=== PATIENT | male | born 1970 | race Caucasian/White ===

== ENCOUNTER 2017-03-23 09:18 | Emergency (ER) | payer SELFPAY ==
--- NOTE | 2017-03-23 09:49 | EDM.PDOC ---
ED HPI GENERAL MEDICAL PROBLEM - General Chief Complaint: Chest Pain Stated Complaint: CHEST PAIN Time Seen by Provider: 03/23/17 09:24 Source of Information: Reports: Patient History Limitations: Reports: No Limitations - History of Present Illness INITIAL COMMENTS - FREE TEXT/NARRATIVE: The patient is a 46-year-old male with a chief complaint of chest discomfort. He states that he's been getting intermittent chest discomfort for a few months. States that it started when he was going through a very stressful divorce. He states that it is not really a pain but more of a tightness feeling that he gets in his chest sometimes. States that he's been getting it more frequently over the last few days and that its been fairly constant for about 3 days now. Discomfort is located in the center of his chest. No radiation. No exacerbating or relieving factors. No inspiratory pain. Mild SOB. No nausea or vomiting. No cough. No fever or recent illness. No lower extremity pain or swelling. He does currently have the pain at this moment but it is minimal. Treatments RN TRANSITIONAL CARE: Reports: Aspirin Chest Pain Score (Numeric/FACES): 7 - Related Data Allergies Allergy/AdvReac Type Severity Reaction Status Date / Time No Known Allergies Allergy Verified 03/23/17 09:28 Home Meds: Home Meds . [No Known Home Meds] 03/23/17 [History] ED ROS GENERAL - Review of Systems Review Of Systems: See Below Constitutional: Denies: Fever HEENT: Reports: No Symptoms Respiratory: Reports: Shortness of Breath Cardiovascular: Reports: Chest Pain Endocrine: Reports: Fatigue GI/Abdominal: Denies: Abdominal Pain, Vomiting Musculoskeletal: Denies: Arm Pain Skin: Reports: No Symptoms Neurological: Reports: No Symptoms Psychiatric: Reports: No Symptoms Hematologic/Lymphatic: Reports: No Symptoms Immunologic: Reports: No Symptoms ED EXAM, GENERAL - Physical Exam Exam: See Below Exam Limited By: No Limitations General Appearance: Alert, WD/WN, No Apparent Distress Eye Exam: Bilateral Eye: Normal Inspection Ears: Normal External Exam Nose: Normal Inspection Throat/Mouth: Normal Inspection, Normal Voice, No Airway Compromise Head: Atraumatic, Normocephalic Neck: Normal Inspection, Supple Respiratory/Chest: No Respiratory Distress, Lungs Clear, Normal Breath Sounds, Chest Non-Tender Cardiovascular: Normal Peripheral Pulses, Regular Rate, Rhythm, No Edema, No Murmur GI/Abdominal: Soft, Non-Tender, No Distention Back Exam: Normal Inspection Extremities: Normal Inspection. No: Pedal Edema Neurological: Alert, Oriented, Normal Cognition, No Motor/Sensory Deficits Psychiatric: Normal Affect, Normal Mood Skin Exam: Warm, Dry, Intact, Normal Color, No Rash Course - Vital Signs Last Recorded V/S: Last Vital Signs Temp 36.4 C 03/23/17 09:24 Pulse 78 03/23/17 09:24 Resp 18 03/23/17 09:24 BP 141/84 H 03/23/17 09:24 Pulse Ox 99 03/23/17 09:24 - Orders/Labs/Meds Orders: Active Orders 24 hr Category Date Time Status Chest 1V Frontal [CR] Stat Exams 03/23/17 09:35 Taken Labs: Laboratory Tests 03/23/17 03/23/17 Range/Units 09:30 09:30 WBC 8.77 (4.23-9.07) K/mm3 RBC 5.29 (4.63-6.08) M/mm3 Hgb 16.1 (13.7-17.5) gm/L Hct 45.5 (40.1-51.0) % MCV 86.0 (79.0-92.2) fl MCH 30.4 (25.7-32.2) pg MCHC 35.4 (32.2-35.5) g/dl RDW Std Deviation 40.0 (35.1-43.9) fL Plt Count 266 (163-337) K/mm3 MPV 8.9 L (9.4-12.3) fl Neut % (Auto) 70.5 H (34.0-67.9) % Lymph % (Auto) 21.9 (21.8-53.1) % Wirt % (Auto) 4.6 L (5.3-12.2) % Eos % (Auto) 2.5 (0.8-7.0) Baso % (Auto) 0.3 (0.1-1.2) % Neut # (Auto) 6.18 H (1.78-5.38) K/mm3 Lymph # (Auto) 1.92 (1.32-3.57) K/mm3 Wirt # (Auto) 0.40 (0.30-0.82) K/mm3 Eos # (Auto) 0.22 (0.04-0.54) K/mm3 Baso # (Auto) 0.03 (0.01-0.08) K/mm3 Sodium 138 (136-145) mEq/L Potassium 4.3 (3.5-5.1) mEq/L Chloride 105 (98-107) mEq/L Carbon Dioxide 25 (21-32) mEq/L Anion Gap 12.3 (5-15) BUN 17 (7-18) mg/dL Creatinine 1.0 (0.7-1.3) mg/dL Est Cr Clr Drug Dosing 98.31 mL/min Estimated GFR (MDRD) > 60 (>60) mL/min BUN/Creatinine Ratio 17.0 (14-18) Glucose 90 (74-106) mg/dL Calcium 8.9 (8.5-10.1) mg/dL Total Bilirubin 0.7 (0.2-1.0) mg/dL AST 29 (15-37) U/L ALT 50 (16-63) U/L Alkaline Phosphatase 72 (46-116) U/L Troponin I < 0.017 (0.00-0.056) ng/mL Total Protein 7.2 (6.4-8.2) g/dl Albumin 3.9 (3.4-5.0) g/dl Globulin 3.3 gm/dL Albumin/Globulin Ratio 1.2 (1-2) Lipase 77 (73-393) U/L - Re-Assessments/Exams Free Text/Narrative Re-Assessment/Exam: 03/23/17 09:49 EKG shows normal sinus rhythm, minimal ST elevation the V2 with an early re- pole pattern, no STEMI, no evidence of acute ischemia or arrhythmia. Normal intervals, no ectopy. 03/23/17 10:37 Chest x-ray shows normal cardiac silhouette. Troponin neg. Vitals normal throughout ED stay. Doubt cardiac etiology of CP. SpO2 100% on RA, PERC neg. Reassured patient, advised him to f/u with a primary doctor for further care. Discussed return precautions. Departure - Departure Time of Disposition: 10:38 Disposition: Home, Self-Care 01 Clinical Impression: Chest pain Qualifiers: Chest pain type: other chest pain Qualified Code(s): R07.89 - Other chest pain ; R07.8 - Other chest pain Referrals: PCP,None [Primary Care Provider] - Forms: ED Department Discharge Additional Instructions: 1. Follow up with a primary care physician for further care. You may call [phone] if you'd like to schedule with a provider here. 2. Return to the ED if you have worsening chest pain, shortness of breath, or any other concerning symptoms. - My Orders Last 24 Hours: My Active Orders 03/23/17 09:35 Chest 1V Frontal [CR] Stat - Assessment/Plan Last 24 Hours: My Active Orders 03/23/17 09:35 Chest 1V Frontal [CR] Stat
--- NOTE | 2017-03-25 08:34 | CR ---
Chest: Portable view of the chest was obtained. Comparison: No prior chest x-ray. Heart size and mediastinum are within normal limits. Lungs are clear. Bony structures are grossly intact. Impression: 1. Nothing acute is identified on portable chest x-ray. Diagnostic code #1
== END 2017-03-23 10:42 | disposition home or self-care (01) ==
LOC: JD.ED 09:18
DX: R07.89 Other chest pain (principal)
CPT/HCPCS: 36415; 71010; 71010-26; 80053; 83690; 84484; 85025; 93010; 99285